=== PATIENT | female | born 1955 | race Caucasian/White ===

== ENCOUNTER 2017-07-28 15:20 | Emergency (ER) | payer BC, OTHER ==
[2017-07-28 15:39] VITALS: TEMP 98.1
[2017-07-28] MEDS ORDERED: Tmp-Smz 800 mg-160 mg DS Tab PO STA (16:02)
[2017-07-28] MEDS ORDERED: Naproxen 550 mg Tab PO STA (16:02)
--- NOTE | 2017-07-28 16:17 | ED PDOC ---
Arrival/HPI - General Chief Complaint: Finger,Hand,&Wrist Time Seen by Provider: 07/28/17 15:26 - History of Present Illness Narrative History of Present Illness (Text): 07/28/17 16:13 Pt is a 62 yo F with no significant PMH presents to ED due to left thumb pain. Patient states that about a week and half ago she was handling shrimp when one of them cut her on the left thumb. Patient states she tried to care for the cut with a cream from [place]. However, pain and swelling worsened and eventually some pus was discharged. Patient denied CP, SOB, n/v/d, abdominal pain, fever, chills, [facility], or dizziness. (Francisco Singer) Past Medical History - Cardiac Hx Cardiac Disorders: Yes Hx Hypertension: Yes - Pulmonary Hx Respiratory Disorders: No - Neurological Hx Neurological Disorder: No - HEENT Hx HEENT Disorder: No - Renal Hx Renal Disorder: No - Endocrine/Metabolic Hx Endocrine Disorders: No - Hematological/Oncological Hx Blood Disorders: No - Integumentary Hx Dermatological Disorder: No - Musculoskeletal/Rheumatological Hx Musculoskeletal Disorders: Yes Other/Comment: KNEE PAIN - Gastrointestinal Hx Gastrointestinal Disorders: No - Genitourinary/Gynecological Hx Genitourinary Disorders: No - Psychiatric Hx Psychophysiologic Disorder: No Hx Substance Use: No - Surgical History Hx Section: Yes - Anesthesia Hx Anesthesia: Yes Hx Anesthesia Reactions: No Family/Social History Family/Social History: No Known Family HX Smoking Status: Unknown If Ever Smoked Hx Alcohol Use: No Hx Substance Use: No Allergies/Home Meds Allergies/Adverse Reactions: Allergies No Known Allergies Allergy (Verified 07/28/17 15:34) Review of Systems - Physician Review All systems were reviewed & negative as marked: Yes (12 point ROS reviewed and is negative other than what is stated in HPI.) Physical Exam Vital Signs Reviewed: Yes Temperature: Afebrile Blood Pressure: Normal Pulse: Regular Respiratory Rate: Normal Appearance: Positive for: Non-Toxic Pain Distress: Mild Mental Status: Positive for: Alert and Oriented X 3 - Systems Exam Head: Present: Atraumatic, Normocephalic Pupils: Present: PERRL Extroacular Muscles: Present: EOMI Conjunctiva: Present: Normal Mouth: Present: Moist Mucous Membranes Neck: Present: Normal Range of Motion Respiratory/Chest: Present: Clear to Auscultation, Good Air Exchange. No: Respiratory Distress, Accessory Muscle Use Cardiovascular: Present: Regular Rate and Rhythm Abdomen: No: Tenderness, Distention Upper Extremity: Present: Other (left thumb swelling and small fluctuant area .5 cm near interphalangeal joint. minimal erythema). No: Cyanosis, Edema Lower Extremity: Present: Normal Inspection, Edema Neurological: Present: GCS=15, CN II-XII Intact, Speech Normal Vital Signs Temp Pulse Resp BP Pulse Ox 07/28/17 16:23 98.1 F 76 18 125/70 100 07/28/17 15:35 98.1 F 72 16 123/69 98 Medical Decision Making ED Course and Treatment: 07/28/17 16:17 62 F presents to ED with Left thumb pain, found to have cellulitis. Plan: - Naproxen - Bactrim Left thumb ultrasound performed in the ED showed small area of abscess. Findings were discussed with the patient and as well as the risks and benefits of aspirating the area. The patient acknowledged and agreed to aspiration. Left thumb was thoroughly cleaned with chlorhexidine. 18G needle was introduced into the site of the abscess. Minimal discharge was expressed (< 1cc). Disposition: Patient was given rx for Bactrim and instructed to complete a 7 day course. Patient was instructed to keep area clean with soap and water. Patient will follow up with PMD outpatient. (Francisco Singer) 07/28/17 20:35 pt seen with resident. s/p swelling of thumb after cuting shrimp. bedsdie us shows mimiaml collection. attempted aspiration with minimal drainage. pt declined full anesthesia and i and d with blade. prefers to try bactrim, and will return with worsening. (Frank De Souza) - Medication Orders Current Medication Orders: Discontinued Medications Naproxen (Anaprox Ds) 550 mg PO STAT STA Stop: 07/28/17 16:03 Last Admin: 07/28/17 16:15 Dose: 550 mg Trimethoprim/Sulfamethoxazole (Bactrim Ds Tab) 1 tab PO STAT STA PRN Reason: Protocol Stop: 07/28/17 16:03 Last Admin: 07/28/17 16:15 Dose: 1 tab Disposition/Present on Arrival - Present on Arrival Any Indicators Present on Arrival: No History of DVT/PE: No History of Uncontrolled Diabetes: No Urinary Catheter: No History of Decub. Ulcer: No History Surgical Site Infection Following: None - Disposition Have Diagnosis and Disposition been Completed?: Yes Disposition Time: 16:24 - Disposition Diagnosis: Cellulitis of left thumb Disposition: HOME/ ROUTINE Condition: STABLE Discharge Instructions (ExitCare): Cellulitis (ED) Additional Instructions: 1. Follow up with PMD after completion of antibiotics 2. Complete 7 day course of Bactrim 3. Keep left thumb clean with soap and water 4. Return to ED if symptoms worsen Prescriptions: Sulfamethoxazole/Trimethoprim [Bactrim DS 800 mg-160 mg] 1 tab PO BID #14 tab Referrals: Nhan Tavarez MD [Primary Care Provider] - Follow up with primary Forms: [employer] (Persian)
[2017-07-28 16:24] VITALS: BP 125/70; PULSE 76; RESP 18; O2SAT 100
== END 2017-07-28 16:23 | disposition home or self-care (01) ==
LOC: ED 15:20
DX: L03.012 Cellulitis of left finger (principal)

== ENCOUNTER 2017-08-16 12:28 | Inpatient (IN) | payer BC ==
--- NOTE | 2017-08-16 12:58 | ED PDOC ---
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) - History of Present Illness Narrative History of Present Illness (Text): 08/16/17 12:54 pt p/w + sudden onset of not feeling well, + worsening b/l foot/leg pain with numbness/tingling and noted b/l hand numbness/tingling, cramping up, as well as oral/facial numbness/tingling, and headache; pt + shortness of breath/breathing rapidly and subsequently developed chest pain/tightness; all these symptoms occurred while she was walking to her job/work this afternoon; EMS was contacted , arrived and gave patient benzodiazpine prior to emergency department arrival; pt states no LOC, no vision changes, no slurr speech, no neck pain, no fever/ chills/sweats, no palpitations, no abd pain, ? nausea, no vomiting, no focal weakness, no urinary/bowel changes, no incontinence, no seizure activities noted. pt is here for further eval pt's without other complaints. PCP: Dr Tellez pt is right hand dominate Time/Duration: Prior to Arrival Symptom Onset: Sudden Symptom Course: Unchanged Quality: Tightness, Cramping Severity Level: Severe Activities at Onset: Other (walking to work) Context: Walking, Work Past Medical History - Provider Review Nursing Documentation Reviewed: Yes - Travel History Have you recently traveled outside [place] w/in the past 3 mons?: No - Past History Past History: No Previous - Infectious Disease Hx of Infectious Diseases: None - Reproductive Menopause: Yes Currently : No - Cardiac Hx Cardiac Disorders: Yes Hx Hypertension: Yes - Pulmonary Hx Respiratory Disorders: No - Neurological Hx Neurological Disorder: No - HEENT Hx HEENT Disorder: No - Renal Hx Renal Disorder: No - Endocrine/Metabolic Hx Endocrine Disorders: No - Hematological/Oncological Hx Blood Disorders: No - Integumentary Hx Dermatological Disorder: No - Musculoskeletal/Rheumatological Hx Musculoskeletal Disorders: Yes Other/Comment: KNEE PAIN - Gastrointestinal Hx Gastrointestinal Disorders: No - Genitourinary/Gynecological Hx Genitourinary Disorders: No - Psychiatric Hx Psychophysiologic Disorder: No Hx Substance Use: No - Surgical History Hx Section: Yes - Anesthesia Hx Anesthesia: Yes Hx Anesthesia Reactions: No Family/Social History - Physician Review Nursing Documentation Reviewed: Yes Family/Social History: No Known Family HX Smoking Status: Unknown If Ever Smoked Hx Alcohol Use: No Hx Substance Use: No Hx Substance Use Treatment: No Allergies/Home Meds Allergies/Adverse Reactions: Allergies No Known Allergies Allergy (Verified 08/16/17 12:40) Home Medications: Home Meds Medication Instructions Recorded Confirmed Rosuvastatin Calcium [Crestor] 10 mg PO DAILY 08/16/17 08/16/17 Telmisartan/Hydrochlorothiazid 1 tab PO DAILY 08/16/17 08/16/17 [Micardis Hct 80-12.5 mg Tablet] Review of Systems - Review of Systems Constitutional: Normal Eyes: Normal ENT: Normal Respiratory: Normal Cardiovascular: Chest Pain Gastrointestinal: Normal Genitourinary Female: Normal Musculoskeletal: Other (foot/leg pain; arm pain?) Skin: Normal Neurological: Headache, Dizziness, Other (numbness/tingling) Endocrine: Normal Hemo/Lymphatic: Normal Psychiatric: Normal Physical Exam - Physical Exam Narrative Physical Exam (Text): 08/16/17 12:55 General: alert/awake, GCS = 15, oriented x 3, resting in bed, uncomfortable, cooperative, interactive; shakey/jittery/appearing anxious? Head: NC/AT EYE: PERRLA, EOMI, sclera anicteric, no nystagmus, no photophobia; visual field intact b/l Facial: WNL Oral: uvula/tongue are midline, no exudate/lesions, no drooling/stridor, no dysphonia; intact dentitions; moist oral mucosa NECK: intact ROM, no midline tenderness, no nuchal rigidity, no meningeal signs ; no step off Chest: CTA b/l, no w/r/r; ++ tachypenia (shallow rapid breathing noted), no accessory muscle use noted Cardiac: +S1, +S2, no m/r/r, no tachycardia Abdominal: +BS, soft/nd/nt, well nourished patient; no masses/rebound/guarding/ rigidity; no castro's sign, no mcburney's point tenderness Extremities: intact ROM, strength 5/5 grossly intact in all limbs, neurovasc intact b/l; + ambulatory; reflex +2/2; no pitting edema/swelling b/l; no Jaylene' s sign b/l; pt with cramped b/l hands, as well as numbness/tingling BACK: no step off, no midline tenderness, NO crepitus, no gross deformities noted; Intact ROM SKIN: cap refill < 1 sec, no ulcerations, no petechiae, no rashes NEURO: CNII-XII WNL, no facial asymmetries, no slurr speech, oriented x 3 NIH stroke scale ~ 0 Psych: normal insight, anxious/jittery affect; follows command with ease Vital Signs Reviewed: Yes Vital Signs Temp Pulse Resp BP Pulse Ox 08/16/17 15:17 67 16 129/68 99 08/16/17 12:48 98.1 F 77 21 131/71 100 Temperature: Afebrile Blood Pressure: Normal Pulse: Regular Respiratory Rate: Normal Appearance: Positive for: Well-Appearing, Non-Toxic, Uncomfortable. No: Ill- Appearing, Unkept Pain Distress: Mild Mental Status: Positive for: other (alert/awake; oriented x ) - Systems Exam Head: Present: Atraumatic, Normocephalic Medical Decision Making ED Course and Treatment: 08/16/17 1255 Impression: leg/arm numbness/tingling, chest pain, headache acute onset i have consider all the differential diagnosis regarding pt's chief medical complaints/clinical findings, including but are not limited to: ? panic disorder ; not feeling well, parathesia sensations A/P: panic disorder/anxious, not feeling well, parathesia sensations - labs - ct - xray - iv - acs eval? - supportive care - observe/reevaluation 1330 pt is continues to have mild shortness of breath, continues to have numbness/ tingling to her extremities but is improving pt is awaiting lab/diagnostic results pt is encouraged to breath slower family is at pt's bedside 08/16/17 15:35 pt is currently chest pain free pt is feeling improved, continues to have persistent faint numbness to hand/feet due to pt's lab findings and atypical chest pain, will recommend patient for admission/observation pt/family are made aware, agrees with admission 1605 I spoke to hospitalists asset protection greeter, Dr Serna, made aware, agrees with admission Re-evaluation Time: 16:00 Reassessment Condition: Improving,but remains with symptoms - Lab Interpretations Lab Results: 08/16/17 13:05 08/16/17 13:05 Lab Results 08/16/17 15:15: Urine Opiates Screen Negative, Urine Methadone Screen Negative, Ur Barbiturates Screen Negative, Ur Phencyclidine Scrn Negative, Ur Amphetamines Screen Negative, U Benzodiazepines Scrn Negative, U Oth Cocaine Metabols Negative, U Cannabinoids Screen Negative 08/16/17 14:55: Urine Color Yellow, Urine Appearance Cloudy, Urine pH 7.0, Ur Specific [place] <= 1.005, Urine Protein Negative, Urine Glucose (UA) Negative, Urine Ketones Negative, Urine Blood Moderate H, Urine Nitrate Negative, Urine Bilirubin Negative, Urine Urobilinogen 0.2, Ur Leukocyte Esterase Large H, Urine RBC 10 - 15, Urine WBC 25 - 30, Ur Epithelial Cells Many, Urine Bacteria Many 08/16/17 13:05: pO2 185 H, VBG pH 7.57 H, VBG pCO2 28.0 L, VBG HCO3 25.7, VBG Total CO2 26.6, VBG O2 Sat (Calc) 99.1 H, VBG Base Excess 4.5 H, VBG Potassium 2.8 L, Sodium 138.0, Chloride 104.0, Glucose 112 H, Lactate 2.7 H, FiO2 21.0, Venous Blood Potassium 2.8 L 08/16/17 13:05: TSH 3rd Generation 1.09 08/16/17 13:05: Sodium 141, Chloride 102, Potassium 2.9 L*, Carbon Dioxide 26, Anion Gap 16, BUN 12, Creatinine 0.6 L, Est GFR ( Amer) > 60, Est GFR ( Non-Af Amer) > 60, Random Glucose 109, Calcium 9.4, Magnesium 2.2, Total Bilirubin 0.7, AST 35, ALT 24, Alkaline Phosphatase 48, Lactate Dehydrogenase 375, Total Creatine Kinase 71, Troponin I < 0.01, NT-Pro-B Natriuret Pep 70.5, Total Protein 7.4, Albumin 4.6, Globulin 2.8, Albumin/Globulin Ratio 1.7 08/16/17 13:05: PT 12.0, INR 1.04, APTT 26.7 08/16/17 13:05: WBC 4.1 L, RBC 4.74, Hgb 12.5, Hct 36.7, MCV 77.4 L, MCH 26.4, MCHC 34.1, RDW 12.3, Plt Count 201, MPV 9.9, Gran % 44.7 L, Lymph % (Auto) 46.4 H, Mckenzie % (Auto) 6.8 H, Eos % (Auto) 1.9, Baso % (Auto) 0.2, Gran # 1.84, Lymph # (Auto) 1.9, Mckenzie # (Auto) 0.3, Eos # (Auto) 0.1, Baso # (Auto) 0.01 I have reviewed the lab results: Yes Interpretation: Abnormal lab values (UTI/low K) - RAD Interpretation Narrative RAD Interpretations (Text): 08/16/2017 14:[address] IMPRESSION: Normal CT of the Head. Dictator: Paco Schroeder DO 08/16/17 15:12 Foot X-Ray preliminary results show no acute fracture/dislocation, DJD and osteopenia. Chest X-ray preliminary results show no acute disease. Radiology Orders: 08/16/17 12:51 DUPLEX LOWER EXTRM VEIN BILAT [US] Stat 08/16/17 12:52 HEAD W/O CONTRAST [CT] Stat CHEST PORTABLE [RAD] Stat 08/16/17 13:53 FOOT LEFT 3 VIEWS ROUTINE [RAD] Stat FOOT RIGHT 3 VIEWS ROUTINE [RAD] Stat Practice Coordinator: Radiologist - EKG Interpretation EKG Interpretation (Text): 08/16/17 17:03 NSR at 75 bpm, normal axis, no ectopy, poor baseline, diffuse low voltage, qs in leads III, non-specific st-t changes, ABNL EKG; no old ekg to compare with Interpreted by ED Physician: Yes Type: 12 lead EKG Comparison: No previous EKG avail. - Medication Orders Current Medication Orders: Potassium Chloride (K-Dur 20 Meq Er Tab) 20 meq PO ONCE ONE Stop: 08/16/17 18:01 Discontinued Medications Aspirin (Aspirin) 325 mg PO STAT STA Stop: 08/16/17 12:52 Last Admin: 08/16/17 13:08 Dose: 325 mg Diazepam (Valium) 5 mg PO ONCE ONE PRN Reason: Protocol Stop: 08/16/17 12:54 Last Admin: 08/16/17 13:08 Dose: 5 mg Nitrofurantoin Macrocrystals (Macrobid) 100 mg PO ONCE ONE PRN Reason: Protocol Stop: 08/16/17 16:05 Last Admin: 08/16/17 16:26 Dose: 100 mg Potassium Chloride (K-Dur 20 Meq Er Tab) 40 meq PO STAT STA Stop: 08/16/17 16:05 Last Admin: 08/16/17 16:27 Dose: 40 meq Disposition/Present on Arrival - Present on Arrival Any Indicators Present on Arrival: No History of DVT/PE: No History of Uncontrolled Diabetes: No Urinary Catheter: No History of Decub. Ulcer: No History Surgical Site Infection Following: None - Disposition Have Diagnosis and Disposition been Completed?: Yes Diagnosis: Chest pain with low risk for cardiac etiology, Hypokalemia, Numbness and tingling, UTI (urinary tract infection), Anxiety Disposition: HOSPITALIZED Disposition Time: 16:10 Patient Plan: Admission, Observation, Telemetry Patient Problems: Current Active Problems Problem Status Onset Anxiety Acute Chest pain with low risk for cardiac etiology Acute Hypokalemia Acute Numbness and tingling Acute UTI (urinary tract infection) Acute Condition: STABLE Print Language: PERSIAN
[2017-08-16 13:29] LABS: VENOUS BLOOD GAS BASE EXCESS 4.5 mmol/L (0.0-2.0); VENOUS BLOOD GAS PO2 185 mm/Hg (30-55); VENOUS BLOOD PH 7.57 (7.32-7.43)
[2017-08-16 13:41] LABS: BASO # 0.01 K/mm3 (0.0-2.0); BASO % 0.2 % (0.0-3.0); EOS # 0.1 (0.0-0.7); EOS % 1.9 % (1.5-5.0); GRAN # 1.84 (1.4-6.5); GRAN % 44.7 % (50.0-68.0); HEMOGLOBIN 12.5 g/dL (12.0-16.0); LYMPH # 1.9 (1.2-3.4); LYMPH % 46.4 % (22.0-35.0); MEAN CELL VOLUME 77.4 fl (80.0-105.0); MEAN CORPUSCULAR HEMOGLOBIN 26.4 pg (25.0-35.0); MEAN CORPUSCULAR HGB CONC 34.1 g/dl (31.0-37.0); MEAN PLATELET VOLUME 9.9 fl (7.0-11.0); MONO # 0.3 (0.1-0.6); MONO % 6.8 % (1.0-6.0); RBC 4.74 10^6/uL (3.5-6.1); RED CELL DISTRIBUTION WIDTH 12.3 % (11.5-14.5); WHITE BLOOD COUNT 4.1 10^3/ul (4.5-11.0)
[2017-08-16 13:45] LABS: ALB/GLOB RATIO 1.7 (1.1-1.8); ALBUMIN 4.6 g/dL (3.0-4.8); ALT/SGPT 24 U/L (7-56); AST/SGOT 35 U/L (14-36); BLOOD UREA NITROGEN 12 mg/dL (7-21); CALCIUM 9.4 mg/dL (8.4-10.5); GFR AFRICAN-AMERICAN > 60; GFR NON-AFRICAN AMERICAN > 60
[2017-08-16 13:46] LABS: INR 1.04 (0.93-1.08); PARTIAL THROMBOPLASTIN TIME 26.7 Seconds (25.1-36.5)
[2017-08-16 13:48] LABS: B-TYPE NATRIURETIC PEPTIDE 70.5 pg/mL (0-450)
[2017-08-16 13:50] LABS: TROPONIN I < 0.01 ng/mL
--- NOTE | 2017-08-16 14:38 | CT ---
PROCEDURE: CT HEAD WITHOUT CONTRAST. HISTORY: headache, leg pain/numbness/arm numbness COMPARISON: None available. TECHNIQUE: Axial computed tomography images were obtained through the head/brain without intravenous contrast. Radiation dose: Total exam DLP = mGy-cm. This CT exam was performed using one or more of the following dose reduction techniques: Automated exposure control, adjustment of the mA and/or kV according to patient size, and/or use of iterative reconstruction technique. FINDINGS: HEMORRHAGE: No intracranial hemorrhage. BRAIN: No mass effect or edema. No atrophy or chronic microvascular ischemic changes. VENTRICLES: Unremarkable. No hydrocephalus. CALVARIUM: Unremarkable. PARANASAL SINUSES: Unremarkable as visualized. No significant inflammatory changes. MASTOID AIR CELLS: Unremarkable as visualized. No inflammatory changes. OTHER FINDINGS: None. IMPRESSION: Normal CT of the Head.
[2017-08-16 15:27] LABS: URINE BILIRUBIN NEGATIVE (NEGATIVE); URINE BLOOD MODERATE (NEGATIVE); URINE GLUCOSE (UA) NEGATIVE (NEGATIVE); URINE LEUKOCYTE ESTERASE LARGE Leu/uL (NEGATIVE); URINE PROTEIN NEGATIVE mg/dL (<30 mg/dL); URINE UROBILINOGEN 0.2 E.U./dL (<1 E.U./dL)
[2017-08-16 15:29] LABS: URINE APPEARANCE CLOUDY (CLEAR); URINE COLOR YELLOW (YELLOW)
[2017-08-16 15:38] LABS: URINE BACTERIA MANY (NEG); URINE EPITHELIAL CELLS MANY /hpf (0-5); URINE WBC 25 - 30 /hpf (0-6)
[2017-08-16 15:52] LABS: BARBITURATES, UR NEGATIVE (NEGATIVE); BENZODIAZEPINES, UR NEGATIVE (NEGATIVE); OPIATES, UR NEGATIVE (NEGATIVE); PHENCYCLIDINE, UR NEGATIVE (NEGATIVE)
[2017-08-16] MEDS ORDERED: Potassium Chloride 20 mEq ER Tab PO STA (16:04)
--- NOTE | 2017-08-16 17:24 | RAD ---
HISTORY: chest pain COMPARISON: TheNo prior. FINDINGS: LUNGS: Poor inspiration with low lung volumes, crowded bronchovascular markings and mild bibasilar atelectasis PLEURA: No significant pleural effusion identified, no pneumothorax apparent. CARDIOVASCULAR: Normal. OSSEOUS STRUCTURES: No significant abnormalities. VISUALIZED UPPER ABDOMEN: Normal. OTHER FINDINGS: None. IMPRESSION: Poor inspiration with low lung volumes, crowded bronchovascular markings and mild bibasilar atelectasis
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
[2017-08-16] MEDS ORDERED: Potassium Chloride 20 mEq ER Tab PO ONE (18:00)
[2017-08-16] MEDS ORDERED: Sodium Chloride 0.9% 1,000 ML IV SCH (18:15)
[2017-08-16 18:44] LABS: VENOUS BLOOD GAS BASE EXCESS 4.2 mmol/L (0.0-2.0); VENOUS BLOOD GAS PO2 138 mm/Hg (30-55); VENOUS BLOOD PH 7.43 (7.32-7.43)
[2017-08-16 22:16] VITALS: BMI 21.9
[2017-08-16] MEDS ORDERED: Pneumococcal 23-Valent Vaccine IM ONE (22:16)
[2017-08-17 08:13] LABS: TROPONIN I < 0.01 ng/mL
[2017-08-17 08:17] LABS: BLOOD UREA NITROGEN 18 mg/dL (7-21); CALCIUM 8.6 mg/dL (8.4-10.5); GFR AFRICAN-AMERICAN > 60; GFR NON-AFRICAN AMERICAN > 60
[2017-08-17 13:41] LABS: TROPONIN I < 0.01 ng/mL
--- NOTE | 2017-08-17 13:47 | CARD ---
APPROVED REPORT EKG Measurement Heart [id number] MD [id number] <Conclusion> Normal sinus rhythm Low voltage QRS Cannot rule out Inferior infarct, age undetermined Cannot rule out Anterior infarct, age undetermined Abnormal ECG
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
[2017-08-17 14:53] LABS: HDL CHOLESTEROL 47 mg/dL (29-60)
[2017-08-17 15:03] LABS: LDL CHOLESTEROL 84 mg/dL (0-129)
--- NOTE | 2017-08-17 17:47 | US ---
HISTORY: Leg pain and swelling. Evaluate for DVT PHYSICIAN(S): Damon Bennett MD. TECHNIQUE: Duplex sonography and color-flow Doppler with graded compression were used to evaluate the deep venous systems of both lower extremities. FINDINGS: The visualized deep venous systems of both lower extremities are sonographically normal and compressible. Normal wave forms and augmentation are seen. There is no sonographic evidence for deep venous thrombosis in the visualized segments of both lower extremities. IMPRESSION: No sonographic evidence for deep venous thrombosis in the visualized segments of both lower extremities.
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
--- NOTE | 2017-08-18 14:02 | CT ---
PROCEDURE: CT HEAD WITHOUT CONTRAST. HISTORY: repeat CT presisent numbness/tingling LE COMPARISON: None available. TECHNIQUE: Axial computed tomography images were obtained through the head/brain without intravenous contrast. Radiation dose: Total exam DLP = mGy-cm. This CT exam was performed using one or more of the following dose reduction techniques: Automated exposure control, adjustment of the mA and/or kV according to patient size, and/or use of iterative reconstruction technique. FINDINGS: HEMORRHAGE: No intracranial hemorrhage. BRAIN: No mass effect or edema. No atrophy or chronic microvascular ischemic changes. VENTRICLES: Unremarkable. No hydrocephalus. CALVARIUM: Unremarkable. PARANASAL SINUSES: Unremarkable as visualized. No significant inflammatory changes. MASTOID AIR CELLS: Unremarkable as visualized. No inflammatory changes. OTHER FINDINGS: None. IMPRESSION: Normal CT of the Head.
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
--- NOTE | 2017-08-18 19:01 | CARD ---
APPROVED REPORT EXAM: Two-dimensional and M-mode echocardiogram with Doppler and color Doppler. INDICATION Chest Pain R/O ACS 2D DIMENSIONS Left Atrium (2D)4.0 (1.6-4.0cm)IVSd0.7 (0.7-1.1cm) LVDd4.8 (3.9-5.9cm)PWd0.8 (0.7-1.1cm) LVDs3.4 (2.5-4.0cm)FS (%) 29.0 % LVEF (%)55.4 (>50%) M-Mode DIMENSIONS Aortic Root2.80 (2.2-3.7cm)Aortic Cusp Exc.1.70 (1.5-2.0cm) Aortic Valve AoV Peak Ubtarzja390.0cm/Lisa Peak GR.8mmHg Mitral Valve MV E Ykyhhhvo88.6cm/sMV A Jqbzjopp77.6cm/sE/A ratio0.9 TDI Lateral E' Peak V12.20cm/sMedial E' Peak V7.80cm/sE/Lateral E'5.6 E/Medial E'8.8 Pulmonary Valve PV Peak Oiguoyme70.7cm/sPV Peak Grad.2mmHg Tricuspid Valve TR Peak Dsbfnnie636hx/sRAP [id number] Peak Gr.18mmHg [id number] LEFT VENTRICLE The left ventricle is normal size. There is normal left ventricular wall thickness. The left ventricular function is normal. The left ventricular ejection fraction is within the normal range. There is normal LV segmental wall motion. Transmitral Doppler flow pattern is Grade I-abnormal relaxation pattern. RIGHT VENTRICLE The right ventricle is normal size. There is normal right ventricular wall thickness. The right ventricular systolic function is normal. ATRIA The left atrium is borderline dilated. The right atrium size is normal. AORTIC VALVE The aortic valve is normal in structure. No aortic regurgitation is present. There is no aortic valvular stenosis. MITRAL VALVE The mitral valve is normal in structure. There is no mitral valve regurgitation noted. There is no mitral valve stenosis. TRICUSPID VALVE The tricuspid valve is normal in structure. There is trace tricuspid regurgitation. PULMONIC VALVE There is trace to mild pulmonic valvular regurgitation. GREAT VESSELS The aortic root is normal in size. The IVC is normal in size and collapses >50% with inspiration. PERICARDIAL EFFUSION There is no pericardial effusion. <Conclusion> The left ventricle is normal size. There is normal left ventricular wall thickness. The left ventricular function is normal. The left ventricular ejection fraction is within the normal range. There is normal LV segmental wall motion. Transmitral Doppler flow pattern is Grade I-abnormal relaxation pattern.
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
[2017-08-19 08:24] VITALS: BP 134/77; PULSE 61; RESP 16; TEMP 97.6; O2SAT 98
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
--- NOTE | 2017-08-19 16:53 | CON ---
DATE: 08/19/2017 HISTORY OF PRESENT ILLNESS: The patient was followed up today. The patient was refusing to take Paxil at the nighttime. The patient reported that she spoke to her daughter who is pharmacist and the patient reported that her family and herself does not feel comfortable to take any medication at this point. The patient reported that she feels much better. Denied being depressed. The patient has future oriented plans. The patient does not have thoughts of harming herself or others. The patient is willing to follow up with outpatient clinic. The patient was advised to check her insurance and check local providers, but the patient was educated about [facility] as well as [facility] as well as [facility] as well as [facility] outpatient programs. The patient was appreciative. Vital signs are stable. There are no new lab results. The patient was seen by neurologist. The patient was seen by primary care team. MENTAL STATUS EXAMINATION: The patient presented to be alert and oriented, pleasant, cooperative, much calmer to compare with yesterday. The patient denied being depressed. Affect was reactive. Mood congruent. Thought process coherent and goal directed. Thought content, the patient denied visual, auditory or tactile hallucinations. Denied paranoid ideations. The patient denied thoughts of harming herself or others. Denied intents or plan. Insight and judgment seems to be improving. Impulses are well controlled. IMPRESSION: Most likely, the patient has acute stress reaction, but it is improved. PLAN: The patient does not want to stay in the hospital, does not want to take any medications, has future oriented plans. The patient pose no imminent danger to self or others. The patient was advised to see psychiatrist in the community. The patient is not psychotic. This job specification writer will sign off. Thank you very much for letting me participate in the care of your patient. Gina Barry MD
== END 2017-08-19 14:00 | disposition home or self-care (01) | DRG 313 ==
LOC: ED 12:28 → ERH 16:18 → 3RSO 18:53 → OBSVTOIN 08-17 13:56 → 3RSO 08-18 04:09
PROVIDERS: ADMIT Internal Medicine; ATTEND Internal Medicine
DX: R07.89 Other chest pain (principal); N39.0 Urinary tract infection, site not specified; F41.0 Panic disorder [episodic paroxysmal anxiety]; F43.0 Acute stress reaction; F41.9 Anxiety disorder, unspecified; E87.6 Hypokalemia; I10 Essential (primary) hypertension; E78.5 Hyperlipidemia, unspecified; E78.00 Pure hypercholesterolemia, unspecified; K21.9 Gastro-esophageal reflux disease without esophagitis; M20.11 Hallux valgus (acquired), right foot; F40.240 Claustrophobia